=== PATIENT | male | born 1940 | race Caucasian/White ===

== ENCOUNTER 2018-03-21 08:28 | Day surgery (SDC) | payer OTHER ==
[~2018-03-21] VITALS: Ht 174 cm; Wt 77.1 kg
[~2018-03-21 08:28] MED LIST: ASPI81 PO; LORT7.5T3 PO; [UNRECOGNIZED DRUG - REMARK]; [UNRECOGNIZED DRUG - REMARK]
[2018-03-21] MEDS ORDERED: IOHEXOL 350 MG/ML 100 ML BTL (for Cath Lab) OTHER ONE (08:29)
[2018-03-21] MEDS ORDERED: NS 1000P @30 MLS/HR (KVO) IV SCH (08:45)
[2018-03-21] MEDS ORDERED: EZET10 PO (08:58)
[2018-03-21] MEDS ORDERED: LIPI80TA PO (08:58)
[2018-03-21] MEDS ORDERED: ENAL20TA PO (08:58)
[2018-03-21] MEDS ORDERED: DIAZ5 PO (08:58)
[2018-03-21] MEDS ORDERED: ZOLP10TA3 PO (08:58)
[2018-03-21] MEDS ORDERED: ASPI81TA23 PO (08:58)
[2018-03-21] MEDS ORDERED: MULT-65 PO (08:58)
[2018-03-21 08:59] VITALS: BP 150/93; PULSE 68; RESP 16; TEMP 97.7; O2SAT 97
[2018-03-21 09:02] LABS: AUTOMATED NEUTROPHIL # 4.1 TH/MM3 (1.8-7.7); BASOPHIL % 0.7 % (0.0-2.0); EOSINOPHIL # 0.2 TH/MM3 (0-0.4); EOSINOPHIL % 3.5 % (0.0-4.0); HEMATOCRIT 41.9 % (39.0-51.0); LYMPH % 14.3 % (9.0-44.0); LYMPHOCYTE # 0.8 TH/MM3 (1.0-4.8); MEAN CELL VOLUME 89.9 FL (80.0-100.0); MEAN CORPUSCULAR HGB CONC 33.4 % (32.0-36.0); MEAN PLATELET VOLUME 8.3 FL (7.0-11.0); MONO % 11.3 % (0.0-8.0); MONOCYTE # 0.7 TH/MM3 (0-0.9); NEUT % 70.2 % (16.0-70.0); PLATELET COUNT 247 TH/MM3 (150-450); RED BLOOD COUNT 4.66 MIL/MM3 (4.50-5.90); RED CELL DISTRIBUTION WIDTH 13.4 % (11.6-17.2); WHITE BLOOD COUNT 5.8 TH/MM3 (4.0-11.0)
[2018-03-21 09:14] LABS: INTERNATIONAL NORMALIZED RATIO 1.1 RATIO; PROTHROMBIN TIME - PATIENT 11.3 SEC (9.8-11.6)
[2018-03-21 09:28] LABS: BICARBONATE 27.2 MEQ/L (21.0-32.0); CALCIUM 8.5 MG/DL (8.5-10.1); CREATININE 0.97 MG/DL (0.60-1.30)
[2018-03-21] MEDS ORDERED: MIDAZOLAM HCL 2 MG/2 ML VIAL ONE (12:45)
[2018-03-21] MEDS ORDERED: HEPARIN-NS/PF INJ 1,500 ML ONE (12:45)
--- NOTE | 2018-03-21 13:06 | EKG ---
Date Performed: 03/21/2018 Time Performed: 09:02:36 PTAGE: 77 years EKG: Sinus rhythm . Lateral ST-T changes are nonspecific Borderline ECG NO PREVIOUS TRACING DOCTOR: Clem Singleton Interpretating Date/Time 03/21/2018 13:03:23
[2018-03-21] MEDS ORDERED: SODIUM CHLOR 0.9% 1000 ML INJ 1,000 ML IV ONE (13:42)
[2018-03-21] MEDS ORDERED: CARV3.12 PO (13:45)
[2018-03-21] MEDS ORDERED: SODIUM CHLOR 0.9% 250 ML INJ 250 ML IV PRN (13:45)
[2018-03-21] MEDS ORDERED: ATROPINE SULFATE 1 MG/ML VIAL IVP PRN (13:45)
[2018-03-21] MEDS ORDERED: ISOS60TA PO (13:45)
[2018-03-21] MEDS ORDERED: ONDANSETRON ODT 4 MG TAB PO PRN (13:45)
--- NOTE | 2018-03-21 13:58 | MA ---
cc: Placido Gonsalves MD DATE: 03/21/2018 PROCEDURE: Left heart catheterization, selective coronary and graft angiography, left ventriculography, aortic root injection. PROCEDURE NOTES: The patient was brought to the cardiac catheterization laboratory in a fasting state after having signed informed consent. The right groin was prepped and draped as per policy and anesthetized with 1% lidocaine. Arterial access was obtained via the right femoral artery and a 6-Macanese sheath placed. Coronary arteriography was performed using 6-Macanese Diana left 4.0 and right progressive catheters. The bypass grafts were engaged with the Progressive right catheter except for the vein graft to the right coronary, the stump of which was engaged with a multipurpose catheter. Left ventriculography was done using an angled pigtail catheter. This same catheter was used for aortic root injection. There were no apparent, immediate complications. His arteriotomy site was closed with a VASCADE. HEMODYNAMIC DATA: Left ventricle 164 with an end-diastolic pressure of 15. Aorta 177/90 with a mean of 128. There was no significant transvalvular aortic gradient on pullback of the pigtail catheter. CORONARY ARTERIOGRAPHY: The left main is normal. The left anterior descending demonstrates a long stent in its proximal portion. There is diffuse restenosis of the stent resulting in up to 50% stenosis. In the mid-LAD, competitive flow is evident. There may be up to 50% stenosis in the mid-LAD. The distal LAD has minimal luminal irregularities. There are 3 diagonals arising from the LAD, the second and third of which are small and normal. The first diagonal was somewhat difficult to visualize, but may have mild disease very proximally. The left circumflex is diffusely diseased with up to 60% stenosis proximally and then a total occlusion in its mid-portion. The first obtuse marginal arises very proximally and is very small. The right coronary artery is a medium-sized dominant vessel, which is also diffusely diseased. There is up to 20-30% stenosis in the proximal to mid-portion. The posterior descending artery is a relatively small caliber vessel arising at a 90-degree angle to the main vessel. There is up to 90% stenosis at the origin of the posterior descending artery. GRAFT ANGIOGRAPHY: The left internal mammary artery to the LAD is patent. There does appear to be a large un-ligated branch arising from the mid-portion of this graft. The vein graft to the obtuse marginal is widely patent. Two graft stumps are engaged presumably to a diagonal and right coronary artery. Aortic root injection shows no other patent bypass grafts. LEFT VENTRICULOGRAPHY: Contrast injection of the left ventricle reveals no wall motion abnormalities. Estimated ejection fraction is 55%. CONCLUSIONS: 1. Moderate to severe three-vessel [place] coronary artery disease. 2. Right dominant system. 3. Patent 2 out of 4 bypass grafts, including a left internal mammary artery to the LAD and vein graft to the obtuse marginal. Two occluded grafts, presumably to a diagonal and to the right coronary artery, are evident. Of note, there is also a fairly large un-ligated branch arising from the left internal mammary artery graft. 4. Normal left ventricular function with estimated ejection fraction of 55%. DISCUSSION: The patient will be treated medically. The disease at the ostium of the posterior descending artery would be difficult to treat, given the acute angulation of this vessel. It is also a small caliber vessel. In the future, consideration could be made towards embolization of the un-ligated branch off the left internal mammary artery if the patient continues to have angina despite maximum medical therapy. MD DEMARCO Aguirre/ROSELYN , 01:41 PM , 01:57 PM [email or web address]
== END 2018-03-21 16:09 | disposition home or self-care (01) ==
LOC: HDOC 08:28 → HDIC 08:28 → HDOC 16:09
PROVIDERS: ATTEND Internal Medicine Cardiovascular Disease
DX: I25.10 Atherosclerotic heart disease of native coronary artery without angina pectoris (principal); I10 Essential (primary) hypertension; E78.5 Hyperlipidemia, unspecified; Z95.1 Presence of aortocoronary bypass graft
CPT/HCPCS: 80048; 85025; 85610; 85730; 93005; 93459; 99152; 99153; C1760; C1769; C1893; G0269; J1644; J2250; J3010; Q9967